=== PATIENT | female | born 1945 | race Caucasian/White ===

== ENCOUNTER 2017-11-11 08:01 | Outpatient (CLI) | payer OTHER ==
[~2017-11-11 08:01] MED LIST: CIPRO500 MG PO; GLUMETZA1000 MG; HUMALOG100 U/M1; HYZAAR 100/25 T1 TAB; LEVSIN0.125 MG PO; SYNTHROID100 MCG; ZANTAC300 MG PO; ZOFRAN4 MG PO
== END 2017-11-11 08:09 | disposition home or self-care (01) ==
LOC: NUCLEAR 08:01
DX: I25.10 Atherosclerotic heart disease of native coronary artery without angina pectoris (principal)
CPT/HCPCS: 78452; 93017; A9500; J0153

== ENCOUNTER → 2024-06-08 | Outpatient (CLI) | payer OTHER ==
[~2024-06-08] VITALS: Ht 213.4 cm; Wt 5.0 kg
[~2024-06-08] MED LIST changes: +DIOVAN320 MG PO; +LANTUS SOL100 UNIT/1; +NEURONTIN800 MG PO; +REMERON30 M1 PO; +SYNJARDY 12.5-1 EACH
[2024-06-08 12:57] LABS: RH POSITIVE
[2024-06-08 13:52] VITALS: BP 154/82
== END | disposition home or self-care (01) ==
LOC: LAB 06:00 → SURH 06-19 07:00 → EDSTATUS 06-19 10:30
PROVIDERS: ATTEND Orthopaedic Surgery Sports Medicine
DX: M17.11 Unilateral primary osteoarthritis, right knee (principal)